=== PATIENT | female | born 1965 | race Native Hawaiian/Other Pacific Islander ===

== ENCOUNTER 2017-05-18 13:23 | Emergency (ER) | payer OTHER ==
[~2017-05-18] VITALS: Ht 157.5 cm; Wt 94.3 kg
[2017-05-18 13:40] VITALS: BP 172/90; TEMP 98.1
== END 2017-05-18 15:05 | disposition home or self-care (01) ==
LOC: ED 13:23
DX: G89.29 Other chronic pain (principal)
CPT/HCPCS: 99281

== ENCOUNTER 2017-06-19 13:18 | Outpatient (CLI) | payer OTHER ==
[2017-06-19] MEDS ORDERED: METFORMIN ER1000 MG PO (18:20)
[2017-06-19] MEDS ORDERED: VICTOZA18 MG/3 ML SC (18:21)
== END 2017-06-19 13:22 | disposition short-term general hospital (02) ==
LOC: AMB 13:18
DX: R10.84 Generalized abdominal pain (principal); R11.2 Nausea with vomiting, unspecified
CPT/HCPCS: A0425; A0427

== ENCOUNTER 2017-06-19 13:25 | Inpatient (IN) | payer OTHER ==
[2017-06-19] VITALS (14 sets, daily range): BP systolic 114–167; BP diastolic 69–104; TEMP 98–98.6; Ht 157.5 cm; Wt 94.4 kg
[~2017-06-19] VITALS: Ht 157.5 cm; Wt 94.4 kg
[2017-06-19 14:44] LABS: PLATELET COUNT 228 K/uL (152-353)
[2017-06-19 15:26] LABS: POTASSIUM 4.4 mmol/L (3.6-5.2)
[2017-06-19] MEDS ORDERED: METFORMIN ER1000 MG PO (18:20)
[2017-06-19] MEDS ORDERED: VICTOZA18 MG/3 ML SC (18:21)
--- NOTE | 2017-06-19 20:00 | NUR ---
PT WAS ADMITTED TO ICU AT 1900 PM. PT WAS RECEIVED VIA STRETCHER. PT IN WITH DKA. PT ON INSULIN DRIP AT 9 ML AND HOUR. CM WITH SR. PT RECEIVING NS AT 250 ML AN HOUR.
--- NOTE | 2017-06-19 21:00 | NUR ---
PT'S DAUGHTER HERE TO CHECK ON PT.
--- NOTE | 2017-06-19 23:31 | NUR ---
[facility] ORDERED AND LAB HERE TO DRAW CARDIAC ENZYME, CMP, AND MAG LEVEL. PT DENIES ANY PAIN AT PRESENT TIME. PT WITH SR.
[2017-06-19 23:55] LABS: POTASSIUM 3.2 mmol/L (3.6-5.2)
[2017-06-20] VITALS (13 sets, daily range): BP systolic 107–170; BP diastolic 62–90; TEMP 97.8–978.5
[2017-06-20 07:09] LABS: PLATELET COUNT 124 K/uL (152-353)
[2017-06-20 07:22] LABS: POTASSIUM 3.2 mmol/L (3.6-5.2)
--- NOTE | 2017-06-20 08:15 | NUR ---
AM ASSESSMENT DONE.
--- NOTE | 2017-06-20 08:40 | NUR ---
PT PULLED IV OUT TO L AC WITH TIP INTACT PRESSURE DRESSING APPLIED. IV ATTEMPTED X4 UNSUCCESSFUL.
--- NOTE | 2017-06-20 09:00 | NUR ---
DR COLEMAN GIVEN UPDATE ON LABS
--- NOTE | 2017-06-20 09:15 | NUR ---
IV STARTED IN L AC WITH A 22G X 1 ATTEMPT PER LENORE RODRIGUEZ RN. SL IN PLACE.
--- NOTE | 2017-06-20 10:00 | NUR ---
FAMILY AT BEDSIDE.
--- NOTE | 2017-06-20 11:48 | NUR ---
DR COLEMAN AT BS
--- NOTE | 2017-06-20 11:50 | NUR ---
DR. COLEMAN HERE TO SEE PT.
--- NOTE | 2017-06-20 16:20 | NUR ---
FAMILY AT BEDSIDE.
[2017-06-20 17:55] LABS: POTASSIUM 3.2 mmol/L (3.6-5.2)
[2017-06-20 23:02] LABS: POTASSIUM 2.9 mmol/L (3.6-5.2)
[2017-06-21] VITALS (8 sets, daily range): BP systolic 120–172; BP diastolic 69–96; TEMP 97.3–98.6
--- NOTE | 2017-06-21 00:48 | NUR ---
COMPLAINTS OF BACK AND ABDOMINAL PAIN. MEDICATED WITH MORPHINE SULFATE 2 MG IVSP.
--- NOTE | 2017-06-21 03:01 | NUR ---
PT RECEIVING 20MEQ OF POTASSIUM IVPB . HAVING TO INFUSE SLOWLY BECAUSE OT COMPLAINS OF BURNING AT THE INFUSION SITE. IV TO THE LEFT AC IS WITHOUT REDNESS AND GOOD BLOOD RETURN NOTED.
--- NOTE | 2017-06-21 06:52 | NUR ---
LAB HERE TO DRAW BLOOD. UNSUCCESSFUL.
--- NOTE | 2017-06-21 06:53 | NUR ---
PT UP OUT OF BED TO BSC. PT STATES,"I'M FEELING BETTER'.
--- NOTE | 2017-06-21 07:30 | NUR ---
AM ASSESSMENT DONE.
[2017-06-21 07:57] LABS: PLATELET COUNT 115 K/uL (152-353)
[2017-06-21 08:13] LABS: SODIUM 132 mmol/L (136-145)
--- NOTE | 2017-06-21 09:46 | NUR ---
IV TO L AC INFILTRATED. IV D/C'D WITH TIP INTACT PRESSURE DRESSING APPLIED. WARM COMPRESS APPLIED.
--- NOTE | 2017-06-21 10:15 | NUR ---
IV TO R AC LEAKING IV D/C'D WITH TIP INTACT PRESSURE DRESSING APPLIED.
--- NOTE | 2017-06-21 13:00 | NUR ---
DR. COLEMAN HERE TO SEE PT.
--- NOTE | 2017-06-21 15:59 | NUR ---
GAVE REPORT TO KELY BOWLES RN.
--- NOTE | 2017-06-21 16:17 | NUR ---
PT TO ROOM 1108 VIA WC IN STABLE COND. ORIENTED PT TO ROOM SURROUNDINGS.
[2017-06-22] VITALS: BP 126/81; TEMP 97.4
[2017-06-22 08:00] VITALS: BP 118/70; TEMP 97.8
[2017-06-22 08:53] LABS: PLATELET COUNT 146 K/uL (152-353)
[2017-06-22 12:00] VITALS: BP 118/72; TEMP 98
--- NOTE | 2017-06-22 12:00 | NUR ---
K RIDER INFUSING AT THIS TIME
--- NOTE | 2017-06-22 14:00 | NUR ---
1 K RIDER INFUSING. PT TOLERATING WELL.
--- NOTE | 2017-06-22 14:45 | NUR ---
PT D/C ORDERS IN SYSTEM. INFORMED PER MD NOT TO D/C UNTIL K+ RIDERS 40MEQ COMPLETE.
[2017-06-22 16:00] VITALS: BP 122/72; TEMP 98
--- NOTE | 2017-06-22 16:30 | NUR ---
K DOREEN COMPLETE. 3RD BAG HUNG PER MD ORDERS
== END 2017-06-22 22:30 | disposition home or self-care (01) | DRG 871 ==
LOC: ED 13:25 → ICU 17:47 → MED/SURG 06-21 16:20
PROVIDERS: Internal Medicine; ADMIT Specialist
DX: A41.89 Other specified sepsis (principal); I21.4 Non-ST elevation (NSTEMI) myocardial infarction; E13.10 Other specified diabetes mellitus with ketoacidosis without coma; N39.0 Urinary tract infection, site not specified; N17.8 Other acute kidney failure; B96.89 Other specified bacterial agents as the cause of diseases classified elsewhere; E83.52 Hypercalcemia; E87.6 Hypokalemia; E83.39 Other disorders of phosphorus metabolism; I10 Essential (primary) hypertension
CPT/HCPCS: 36415; 36600; 80048; 80053; 80061; 80307; 81000; 81002; 82150; 82550; 82570; 82805; 82948; 82962; 83036; 83690; 83735; 84100; 84300; 84484; 85027; 85610; 86703; 87040; 87077; 87086; 87088; 87185; 87205; 93005; 94760; 96361; 96365; 96372; 96375; 99285; G0432; G0479; J0696; J1644; J1815; J1956; J2175; J2270; J2405; J3475; J3480; J3490

== ENCOUNTER 2017-12-30 15:57 | Outpatient (CLI) | payer OTHER ==
[~2017-12-30 15:57] MED LIST: METFORMIN ER1000 MG PO; VICTOZA18 MG/3 ML SC
[2017-12-30] MEDS ORDERED: TIZA4TAB5 PO (16:11)
[2017-12-30] MEDS ORDERED: CELEBREX200 MG PO (16:12)
== END 2017-12-30 16:01 | disposition short-term general hospital (02) ==
LOC: AMB 15:57
DX: R07.89 Other chest pain (principal); R20.0 Anesthesia of skin; M79.602 Pain in left arm
CPT/HCPCS: A0425; A0427

== ENCOUNTER 2017-12-31 13:54 | Outpatient (CLI) | payer OTHER ==
[~2017-12-31 13:54] MED LIST changes: +CELEBREX200 MG PO; +TIZA4TAB5 PO
[2018-01-01] MEDS ORDERED: POTA10CA3 PO (15:36)
== END 2017-12-31 13:58 | disposition short-term general hospital (02) ==
LOC: AMB 13:54
DX: M54.89 Other dorsalgia (principal); R11.2 Nausea with vomiting, unspecified; R53.1 Weakness
CPT/HCPCS: A0425; A0429

== ENCOUNTER 2017-12-31 13:57 | Emergency (ER) | payer OTHER ==
[~2017-12-31] VITALS: Ht 162.6 cm; Wt 88.5 kg
[2017-12-31 14:05] VITALS: BP 158/96; TEMP 97.9
[2017-12-31 15:03] LABS: PLATELET COUNT 162 K/uL (152-353)
[2017-12-31 15:07] LABS: POTASSIUM 3.6 mmol/L (3.6-5.2); SODIUM 129 mmol/L (136-145)
[2018-01-01] MEDS ORDERED: POTA10CA3 PO (15:36)
== END 2017-12-31 15:29 | disposition left against medical advice (07) ==
LOC: ED 13:57
PROVIDERS: Emergency Medicine
DX: R41.82 Altered mental status, unspecified (principal)
CPT/HCPCS: 36415; 80053; 80307; 81000; 82550; 84484; 85027; 87086; 87088; 96360; 99284

== ENCOUNTER 2017-12-31 18:49 | Outpatient (CLI) | payer OTHER ==
[2018-01-01] MEDS ORDERED: POTA10CA3 PO (15:36)
== END 2017-12-31 18:55 | disposition short-term general hospital (02) ==
LOC: AMB 18:49
DX: R53.1 Weakness (principal); R52 Pain, unspecified
CPT/HCPCS: A0425; A0427

== ENCOUNTER 2017-12-31 18:55 | Observation (INO) | payer OTHER ==
[~2017-12-31] VITALS: Ht 157.5 cm; Wt 87.5 kg
[2017-12-31 18:55] VITALS: BP 128/72; TEMP 98.2
[2017-12-31 19:49] LABS: POTASSIUM 3.7 mmol/L (3.6-5.2); SODIUM 124 mmol/L (136-145)
[2017-12-31 22:08] VITALS: BP 135/76; TEMP 98.2; Ht 157.5 cm; Wt 87.5 kg
[2018-01-01] VITALS: BP 111/55; TEMP 98.1
--- NOTE | 2018-01-01 02:28 | NUR ---
PT IS IN BED TOSSING AND TURNING. PT IS MUMBLING TO HERSELF COMPLAINING THAT WE ARE NOT DOING ANYTHING FOR HER. PT BS IS WNL. WILL CONTINUE TO MONITOR.
--- NOTE | 2018-01-01 03:22 | NUR ---
PT REFUSES TO HAVE HER BLOOD SUGAR CHECKED. SHE STATES THAT " SHE WOULD RATHER THAN TO LET US DO ANYTHING ELSE TO HER" WILL CONTINUE TO MONITOR.
[2018-01-01 04:20] VITALS: BP 118/43; TEMP 98.1
--- NOTE | 2018-01-01 04:37 | NUR ---
PT STATES THAT HER "LEFT ARM IS HURTING" TYLENOL WAS ADMINISTERED MOMENTS AGO. WILL CONTINUE TO MONITOR.
[2018-01-01 08:00] VITALS: BP 128/82; TEMP 97.7
--- NOTE | 2018-01-01 08:26 | NUR ---
UPON PATIENT ASSESSMENT, PATIENT IS EXTREMELY UNPLEASANT TOWARDS NURSES. PATIENT EXPRESSES DISLIKE OF NURSES FROM SENIOR PIPING DESIGNER AND DR. GUTIERREZ. WHEN SOMEONE CALLED TO CHECK ON PATIENT SHE YELLED AT PERSON ON PHONE. PT EXPRESSED PAIN IN HER HEAD AND ARM. TYLENOL GIVEN.
[2018-01-01 10:14] LABS: PLATELET COUNT 119 K/uL (152-353)
[2018-01-01 10:32] LABS: POTASSIUM 3.1 mmol/L (3.6-5.2)
--- NOTE | 2018-01-01 11:00 | NUR ---
PATIENTS POTASSIUM AND MAGNISUIM LOW K-3.1 MAG-1.4 MAGGIE LINDO NP AWARE, NEW ORDERS IN PLACE
--- NOTE | 2018-01-01 11:19 | NUR ---
MAGGIE LINDO RESPIRATORY EQUIPMENT ASSISTANT AT PATIENTS BEDSIDE
--- NOTE | 2018-01-01 11:32 | NUR ---
CALLED AND SPOKE WITH NURSE AT [facility], ORDERED BY MAGGIE LINDO CANCELING MACHINE OPERATOR FOR A PSYCH CONSULT. NGHIA MARTIN WILL COME AND EVAL PATIENT FOR PSYCH TREATMENT
[2018-01-01 12:00] VITALS: BP 119/89; TEMP 98
[2018-01-01] MEDS ORDERED: POTA10CA3 PO (15:36)
[2018-01-01 16:00] VITALS: BP 126/86; TEMP 98
--- NOTE | 2018-01-01 17:30 | NUR ---
SESAR HOSE & SLIPPER SOCKS TO LOWER EXTREMITIES.
[2018-01-01 20:00] VITALS: BP 130/82; TEMP 98.2
--- NOTE | 2018-01-01 20:39 | NUR ---
PT UP OUT BED AMBULAATORY TO BR. PM DIABETIC SNAKC GIVEN.
[2018-01-02] VITALS: BP 112/65; TEMP 98.4
[2018-01-02 04:00] VITALS: BP 116/70; TEMP 98.4
[2018-01-02 08:00] VITALS: BP 114/95; TEMP 97.6
[2018-01-02 08:50] LABS: PLATELET COUNT 148 K/uL (152-353)
[2018-01-02 08:54] LABS: POTASSIUM 4.1 mmol/L (3.6-5.2)
[2018-01-02] MEDS ORDERED: LIPITOR20 MG PO (10:04)
--- NOTE | 2018-01-02 11:51 | NUR ---
PT D/C'D. PT REQUESTED TO WALK OUT. IV TO RIGHT FOREARM D/C'D. PT UNDERSTANDS ALL D/C INSTRUCTIONS AND NEW MEDS ORDERED. INSTRUCTED PT ALL NEW MEDS WERE SENT TO [facility].
== END 2018-01-02 12:18 | disposition home or self-care (01) ==
LOC: ED 18:55 → MED/SURG 18:57 → ICU 21:15
PROVIDERS: Emergency Medicine
DX: E11.65 Type 2 diabetes mellitus with hyperglycemia (principal); E11.42 Type 2 diabetes mellitus with diabetic polyneuropathy; Z79.4 Long term (current) use of insulin; E87.6 Hypokalemia; E83.42 Hypomagnesemia; N39.0 Urinary tract infection, site not specified; F32.89 Other specified depressive episodes; F43.12 Post-traumatic stress disorder, chronic; Z91.14 Patient's other noncompliance with medication regimen
CPT/HCPCS: 36415; 80053; 80061; 82948; 82962; 83036; 83735; 84443; 85027; 96365; 96372; 96374; 99220; 99284; G0378; J1815

== ENCOUNTER 2018-05-15 19:28 | Outpatient (CLI) | payer OTHER ==
[~2018-05-15 19:28] MED LIST changes: +LIPITOR20 MG PO; +POTA10CA3 PO
[2018-05-15 21:19] LABS: POTASSIUM 3.5 mmol/L (3.6-5.2)
== END 2018-05-15 22:06 | disposition home or self-care (01) ==
LOC: LABW 19:28
PROVIDERS: Emergency Medicine
DX: E03.8 Other specified hypothyroidism (principal); E11.9 Type 2 diabetes mellitus without complications; M54.89 Other dorsalgia
CPT/HCPCS: 36415; 80053; 84100; 84443

== ENCOUNTER 2018-06-22 10:01 | Outpatient (CLI) | payer OTHER ==
[2018-06-22 10:35] LABS: PLATELET COUNT 159 K/uL (152-353)
== END 2018-06-22 21:39 | disposition home or self-care (01) ==
LOC: LABW 10:01
PROVIDERS: Physician Assistant Medical
DX: E10.9 Type 1 diabetes mellitus without complications (principal); I10 Essential (primary) hypertension; G89.29 Other chronic pain; E03.8 Other specified hypothyroidism
CPT/HCPCS: 36415; 80053; 80061; 81000; 83036; 84436; 84443; 84479; 85027